=== PATIENT | female | born 1955 | race Caucasian/White ===

== ENCOUNTER 2022-09-16 14:17 | Emergency (ER) | payer MEDICARE, SELFPAY ==
[2022-09-16] VITALS (31 sets, daily range): BP systolic 74–104; BP diastolic 30–60; PULSE 63–78; RESP 11–22; TEMP 36.2; O2SAT 92–100
--- NOTE | 2022-09-16 14:40 | ECG_ITS ---
Measurements Intervals [place] Rate: 72 P: -47 VT: 105 QRS: 24 QRSD: 98 T: 77 QT: 404 QTc: 443 Interpretive Statements SINUS RHYTHM BORDERLINE AV CONDUCTION DELAY BORDERLINE ST-T WAVE ABNORMALITY- ANTEROLAT/HIGH LAT LEADS BORDERLINE ECG NO PREVIOUS ECG AVAILABLE FOR COMPARISON Electronically Signed On 09-16-2022 15:33:39 GEOPHYSICAL LABORATORY DIRECTOR by Otto Castillo D.O.
[2022-09-16 15:28] LABS: Basophils Percent Auto 0.8 % (0.2-1.2); Eosinophils Absolute Auto 0.2 K/mm3 (0-0.3); Eosinophils Percent Auto 3.1 % (0-4.4); Hematocrit 35.4 % (37.0-47.0); Hemoglobin 11.5 g/dL (12.0-15.0); Immature Granulocyte Absolute 0.02 K/mm3 (0.00-0.031); Immature Granulocyte Percent A 0.4 % (0-0.5); Lymphocytes Absolute Auto 0.41 K/mm3 (0.9-3.2); Lymphocytes Percent Auto 7.8 % (18.3-44.2); Mean Corpuscular HGB Conc 32.5 g/dl (32-36); Mean Corpuscular Hemoglobin 31.3 pg (26-34); Mean Corpuscular Volume 96.2 fl (80-100); Mean Platelet Volume 9.4 fl (7.4-10.4); Monocytes Absolute Auto 0.3 K/mm3 (0.1-0.6); Monocytes Percent Auto 5.5 % (2.6-8.5); Neutrophils Absolute Auto 4.3 K/mm3 (1.3-6.7); Neutrophils Percent Auto 82.4 % (45.5-73.1); Platelet Count Result 128 k/mm3 (150-375); Red Blood Count 3.68 M/mm3 (4.2-5.4); Red Cell Distribution Width 14.4 % (11.5-14.5); White Blood Count 5.2 K/mm3 (4.5-10.0)
[2022-09-16 15:37] LABS: Alanine Aminotransferase 29 U/L (6-35); Albumin Level 3.9 g/dL (3.5-5.1); Alkaline Phosphatase 150 U/L (38-126); Anion Gap 12 mmol/L (8-16); Aspartate Amino Transferase 34 U/L (14-36); Bilirubin,Total 0.6 mg/dL (0.2-1.3); Blood Urea Nitrogen 22 mg/dL (7-17); Calcium 8.4 mg/dL (8.4-10.2); Carbon Dioxide 34 mmol/L (22-30); Chloride 93 mmol/L (98-107); Estimated CRCL calculation 18 ml/min; Estimated Glomerular Filt Rate 9; Glucose 118 mg/dL (65-110); Potassium 3.3 mmol/L (3.4-5.0); Sodium 139 mmol/L (137-145)
[2022-09-16] MEDS: SODIUM CHLORIDE 0.9% IV 500 ML 999 ML IV CONT ×2 (15:42→17:25)
--- NOTE | 2022-09-16 18:10 | ED.SYNCOPE ---
HPI - Syncope General Chief Complaint: Syncope Stated Complaint: syncope Time Seen by Provider: 09/16/22 14:54 Source: patient Mode of arrival: EMS Limitations: no limitations History of Present Illness HPI narrative: 66-year-old with a history of ESRD on hemodialysis here with a complaint of syncopal episode patient states that she finished a whole treatment her blood pressure dropped. Patient denied having any chest pain or shortness of breath. No history of fever or chills. Denies any nausea, vomiting or diarrhea. MD complaint: almost passed out Prodromal symptoms: none Context: standing up Injuries sustained associated with event: none Current symptoms: none Related Data Home Medications Medication Instructions Recorded Confirmed Acidophilus Probiotic 1 tab-cap DAILY 09/16/22 amiodarone 200 mg tablet 100 mg HS 09/16/22 apixaban 5 mg tablet (Eliquis) 5 mg BID 09/16/22 carvedilol 6.25 mg tablet 6.25 mg BID 09/16/22 cholecalciferol (vitamin D3) 25 1,000 unit DAILY 09/16/22 mcg (1,000 unit) chewable tablet (Vitamin D3) citalopram 20 mg tablet 20 mg DAILY 09/16/22 furosemide 80 mg tablet 80 mg BID 09/16/22 gabapentin 100 mg capsule 100 mg DAILY 09/16/22 gabapentin 100 mg capsule 200 mg HS 09/16/22 melatonin 10 mg tablet,extended 20 mg PO HS 09/16/22 release pantoprazole 40 mg tablet,delayed 40 mg PO DAILY 09/16/22 release potassium chloride 20 mEq 20 meq PO DAILY 09/16/22 tablet,extended release(part/cryst) tramadol 50 mg tablet 100 mg HS PRN Pain 09/16/22 vitamin B complex 1 cap PO DAILY 09/16/22 vitamin B complex-vitamin C-folic 1 tablet DAILY 09/16/22 acid 0.8 mg tablet (Yissel-Marc) Allergies Allergy/AdvReac Type Severity Reaction Status Date / Time oxycodone AdvReac Hallucinati Verified 09/16/22 15:37 ng Review of Systems Review of Systems: All systems reviewed & are unremarkable except as noted in HPI and below Constitutional: Constitutional: Reports no additional constitutional complaints Eyes: Eyes: Reports no additional eye complaints ENT: Reports system reviewed and no additional complaints, except as documented Cardiovascular: Cardiovascular: Reports no additional cardiovascular complaints Respiratory: Respiratory: Reports no additional respiratory complaints Gastrointestinal: Gastrointestinal: Reports no additional gastrointestinal complaints Musculoskeletal: Musculoskeletal: Reports no additional musculoskeletal complaints Integumentary/Breasts: Skin/Breast: Reports system reviewed and no additional complaints, except as docu Exam Narrative: GENERAL: Well-appearing, well-nourished, and in no acute distress. HEAD: Normocephalic, atraumatic. EYES: PERRLA and EOMI. NECK: Supple. CHEST: Clear to auscultation. No respiratory distress. HEART: Regular rate and rhythm. No murmur heard. Normal peripheral pulses. ABDOMEN: Soft, nontender, nondistended, normal active bowel sounds. EXTREMITIES: Normal range of motion. No edema. SKIN: Warm, dry, no rash. NEURO: No focal deficits. Alert and oriented x3. PSYCH: Normal mood and affect. Course Course Emergency Course: Patient was hypotensive upon arrival we will give a bolus of 500 mL of normal saline and recheck her blood pressure also do routine lab work and EKG. Patient has no other complaints at this time. After a bolus of fluid her blood pressure is now 102/51 with a heart rate of 76 and she is feeling much better she wants to go home. 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 Vital Signs Vital signs: Vital Signs Temperature 36.2 C L 09/16/22 14:35 Pulse Rate 77 09/16/22 14:35 Respiratory Rate 20 09/16/22 14:35 Blood Pressure 74/30 L 09/16/22 14:35 Pulse Oximetry 94 09/16/22 14:35 Oxygen Delivery Room Air 09/16/22 14:35 Temperature 36.2 C L 09/16/22 14:35 Pulse Rate 69 09/16/22 16:01 Respiratory Rate 12 09/16/22 16:01 Blood Pressure 97/52 L 09/16/22 16:00
== END 2022-09-16 18:35 | disposition home or self-care (01) ==
PROVIDERS: Emergency Provider Family Medicine; PCP Family Medicine
DX: E86.0 Dehydration (principal); N18.6 End stage renal disease; Z99.2 Dependence on renal dialysis; Z79.01 Long term (current) use of anticoagulants; R94.31 Abnormal electrocardiogram [ECG] [EKG]
CPT/HCPCS: 36415; 80053; 85025; 93005; 96360; 96361; 99284; J7040